=== PATIENT | female | born 1975 | race Caucasian/White ===

== ENCOUNTER 2019-11-11 09:46 | Emergency (ER) | payer OTHER ==
[~2019-11-11] VITALS: Ht 152.4 cm; Wt 54.4 kg
[~2019-11-11 09:46] MED LIST: ALBUTEROL INHAL17 GM IH; BIAXIN500 MG PO; MECLIZINE 25 MG25 M1 PO; MUSCLE RELAXER; ZPAK PO
[2019-11-11] MEDS ORDERED: TRAZODONE HCL100 MG PO (10:13)
[2019-11-11] MEDS ORDERED: NEURONTIN300 MG PO (10:14)
[2019-11-11 10:33] LABS: URINE BILIRUBIN NEGATIVE (Negative); URINE BLOOD TRACE (Negative); URINE CLARITY CLEAR; URINE COLOR YELLOW; URINE GLUCOSE-RANDOM NEGATIVE (Negative); URINE KETONES 1+ (Negative); URINE LEUKOCYTES-REFLEX NEGATIVE (Negative); URINE NITRITE-REFLEX NEGATIVE (Negative); URINE PROTEIN NEGATIVE (Negative); URINE SPECIFIC GRAVITY <= 1.005 (1.005-1.030); URINE UROBILINOGEN 0.2 E.U./dl (0.2-1.0)
[2019-11-11 10:43] LABS: ABSOLUTE EOSINOPHILS 0.1 thou/uL (0.0-0.7); ABSOLUTE LYMPHOCYTES 0.7 thou/uL (0.8-5.3); ABSOLUTE MONOCYTES 0.5 thou/uL (0.0-1.2); ABSOLUTE NEUTROPHILS 6.5 thou/uL (1.6-8.1); BASOPHILS 0.6 %; EOSINOPHILS 0.8 %; HEMATOCRIT 40.5 % (37.0-47.0); HEMOGLOBIN 13.8 gm/dL (12.0-15.0); LYMPHOCYTES 8.4 %; MCH 30.8 pg (26.0-34.0); MCHC 34.1 g/dL (28.0-37.0); MCV 90.2 fL (80.0-100.0); MPV 7.8 fl. (7.2-11.1); NUCLEATED RBCS 0 /100WBC; PLATELET COUNT* 222 thou/uL (150-400); POLYS 84.2 %; RBC 4.49 mil/uL (4.20-5.00); RDW-CV 12.7 % (10.5-14.5); WBC 7.8 thou/uL (4.0-11.0)
[2019-11-11 11:00] LABS: CREATININE 0.8 mg/dL (0.6-1.3); POTASSIUM 4.1 mmol/L (3.5-5.1)
[2019-11-11 11:04] LABS: ALBUMIN 3.9 g/dL (3.4-5.0); TOTAL BILIRUBIN 0.8 mg/dL (<0.1-1.0); TOTAL PROTEIN 7.1 g/dL (6.4-8.2)
[2019-11-11] MEDS ORDERED: CIPRO500 M1 PO (12:25)
[2019-11-11] MEDS ORDERED: ZOFRAN ODT4 MG DISSOLVE (12:25)
[2019-11-11] MEDS ORDERED: FLAGYL500 M1 PO (12:25)
[2019-11-11] MEDS ORDERED: NORCO 5-325 TA1 EAC2 PO (12:25)
[2019-11-11 12:40] VITALS: BP 124/85
== END 2019-11-11 12:41 | disposition home or self-care (01) ==
LOC: M.ERS 09:46
PROVIDERS: Emergency Medicine Emergency Medical Services
DX: K57.32 Diverticulitis of large intestine without perforation or abscess without bleeding (principal); R19.7 Diarrhea, unspecified; J45.909 Unspecified asthma, uncomplicated; M13.862 Other specified arthritis, left knee; M13.861 Other specified arthritis, right knee; Z88.6 Allergy status to analgesic agent; Z88.2 Allergy status to sulfonamides; Z88.0 Allergy status to penicillin; Z88.8 Allergy status to other drugs, medicaments and biological substances

== ENCOUNTER → 2019-11-28 | Outpatient (CLI) | payer OTHER ==
[~2019-11-28] MED LIST changes: +CIPRO500 M1 PO; +FLAGYL500 M1 PO; +NEURONTIN300 MG PO; +NORCO 5-325 TA1 EAC2 PO; +TRAZODONE HCL100 MG PO; +ZOFRAN ODT4 MG DISSOLVE
== END ==
LOC: M.RAD 08:52
PROVIDERS: ATTEND Family Medicine
DX: M25.471 Effusion, right ankle (principal); M79.89 Other specified soft tissue disorders

== ENCOUNTER 2020-08-15 11:27 | Emergency (ER) | payer OTHER ==
[~2020-08-15] VITALS: Ht 152.4 cm; Wt 54.4 kg
[2020-08-15] MEDS ORDERED: FLONASE 0.05%50 MCG NARES (11:46)
[2020-08-15] MEDS ORDERED: SUDAFED 12-HOU120 MG PO (11:46)
[2020-08-15] MEDS ORDERED: FLEXERIL PO (11:46)
[2020-08-15 12:05] LABS: URINE BILIRUBIN NEGATIVE (Negative); URINE BLOOD NEGATIVE (Negative); URINE CLARITY CLEAR; URINE COLOR YELLOW; URINE GLUCOSE-RANDOM NEGATIVE (Negative); URINE KETONES NEGATIVE (Negative); URINE LEUKOCYTES-REFLEX TRACE (Negative); URINE NITRITE-REFLEX NEGATIVE (Negative); URINE PROTEIN NEGATIVE (Negative); URINE UROBILINOGEN 0.2 E.U./dl (0.2-1.0)
[2020-08-15 12:12] LABS: ABSOLUTE EOSINOPHILS 0.1 thou/uL (0.0-0.7); ABSOLUTE LYMPHOCYTES 0.9 thou/uL (0.8-5.3); ABSOLUTE MONOCYTES 0.3 thou/uL (0.0-1.2); ABSOLUTE NEUTROPHILS 2.9 thou/uL (1.6-8.1); BASOPHILS 0.6 %; EOSINOPHILS 2.8 %; HEMATOCRIT 38.2 % (37.0-47.0); HEMOGLOBIN 12.6 gm/dL (12.0-15.0); LYMPHOCYTES 20.8 %; MCH 29.9 pg (26.0-34.0); MCHC 32.9 g/dL (28.0-37.0); MCV 91.1 fL (80.0-100.0); MONOCYTES 7.4 %; MPV 7.6 fl. (7.2-11.1); NUCLEATED RBCS 0 /100WBC; PLATELET COUNT* 245 thou/uL (150-400); POLYS 68.4 %; RBC 4.19 mil/uL (4.20-5.00); WBC 4.3 thou/uL (4.0-11.0)
[2020-08-15 12:16] LABS: MUCUS 0-3 Light strn/LPF (None Seen); SQUAMOUS >10 Many /LPF (0-3)
[2020-08-15 12:19] LABS: CRYSTALS None Seen /LPF (None Seen); URINE RBC 0-2 Rare /HPF (0-2); URINE WBC-REFLEX 0-5 Rare /HPF (0-5)
[2020-08-15 12:20] LABS: CASTS None Seen /LPF (None Seen)
[2020-08-15 12:20] LABS: CALCIUM 9.1 mg/dL (8.5-10.1); CREATININE 0.8 mg/dL (0.6-1.3); POTASSIUM 4.1 mmol/L (3.5-5.1)
[2020-08-15 12:27] LABS: ALBUMIN 3.8 g/dL (3.4-5.0); TOTAL BILIRUBIN 0.4 mg/dL (<0.1-1.0)
[2020-08-15] MEDS ORDERED: ONDANSETRON ODT4 MG PO (13:36)
[2020-08-15] MEDS ORDERED: TRANSDERM-SCOP1 EACH TRANSDERM (13:36)
[2020-08-15 13:52] VITALS: BP 163/80
--- NOTE | 2020-08-16 09:47 | EKG ---
[place] [address] ELECTROCARDIOGRAM REPORT Name: STIVEN TALLEYN [id number] Admission: 08/15/20 Attend Phys: Discharge: 08/15/20 Date of : 75 Date of Service: 08/15/20 1242 Report #: [id number] THIS REPORT FOR: //name// [facility] ED Test Date: 2020-08-15 Test Time: 12:42:15 Pat Name: STIVEN TALLEY Department: Room: Gender: Local [employer]mat Driver: [facility] : 1975 Requested By: Romeo Rowley Order Number: [id number] MD: Sumit Barone Measurements Intervals Rector Rate: 56 P: -84 GA: 100 QRS: 82 QRSD: 87 T: 59 QT: 440 QTc: 425 Interpretive Statements Ectopic atrial bradycardia baseline wander No previous ECG available for comparison Electronically Signed On 08-16-2020 9:47:38 CDT by Sumit Barone [email or web address] <ELECTRONICALLY SIGNED> By: Sumit Barone MD, [facility] 08/16/20 0947 1242 1242 Sumit Barone MD, FACC /EPI
== END 2020-08-15 13:54 | disposition left against medical advice (07) ==
LOC: M.ERS 11:27
PROVIDERS: Physician Assistant
DX: R42 Dizziness and giddiness (principal); J45.909 Unspecified asthma, uncomplicated; M13.862 Other specified arthritis, left knee; M13.861 Other specified arthritis, right knee; Z88.6 Allergy status to analgesic agent; Z88.0 Allergy status to penicillin; Z88.2 Allergy status to sulfonamides; Z88.8 Allergy status to other drugs, medicaments and biological substances